=== PATIENT | male | born 1995 | race Caucasian/White ===

== ENCOUNTER 2017-05-19 12:43 | Day surgery (SDC) | payer OTHER ==
[2017-05-19 13:36] VITALS: BP 130/79; PULSE 97; RESP 18; TEMP 98.7; O2SAT 97
[2017-05-19] MEDS ORDERED: TRIAMCINOLONE ACETONIDE 40 MG/ML VIAL ONE (14:12)
--- NOTE | 2017-05-19 14:33 | PD.RAD ---
Post Procedure Progress Note Pre Procedure Diagnosis: (1) Lumbar radiculopathy Post Procedure Diagnosis: (1) Lumbar radiculopathy Procedure Date: May 19, 2017 Supervising Radiologist: Larry Carrero Proceduralist/Assist: Mario Alberto Gaytan RT(R), RT Corrine(R)() Anesthesia: Local Plan of Activity Patient to Unit: ROPU Patient Condition: Good See PACS Report for procedural detail/treatment Larry Carrero MD May 19, 2017 14:33
[2017-05-19 14:35] VITALS: BP 136/79; PULSE 77; RESP 20; TEMP 98.3; O2SAT 98
[2017-05-19] MEDS ORDERED: IOHEXOL 300 MG/ML 50 ML BTL (for RAD DIAG) IT ONE (14:54)
--- NOTE | 2017-05-19 15:10 | RADRPT ---
EXAM DATE/TIME: 05/19/2017 14:14 [facility] COMPARISON: No previous studies available for comparison. INDICATIONS : Patient presents with low back pain in need of epidural steroid injection for pain management. MEDICAL HISTORY : DDD Lumbar w/ sciatica SURGICAL HISTORY : N/A ENCOUNTER: Initial ACUITY: 3 months PAIN SCORE: 0/10 LOCATION: N/A FLUORO TIME: 0.6 minutes IMAGE SERIES: 0 CONTRAST: 2 cc Omnipaque (iohexol) 300 ACCESS LEVEL: MEDICATIONS: 1.) 80 mg triamcinolone (Kenalog) IA RESPONSE: Pre procedure pain level was 0/10. Post procedure pain level was 0/10. PROCEDURE : 1. Fluoroscopically guided epidural injection. The risks, benefits and alternatives to the procedure were explained and verbal and written consent w as obtained. The site was prepped in sterile fashion. Full sterile technique was used, including ca p, mask, sterile gloves and gown and a large sterile sheet. Hand hygiene and 2% chlorhexidine and/or betadine/alcohol prep was utilized per protocol for cutaneous antisepsis. The skin and subcutaneous tissues were infiltrated with local anesthetic solution. With fluoroscopic guidance the targeted epidural space was localized and positive contrast was inject ed to confirm epidural spread. Following this the prescribed medication was injected surrounding the space. The patient's preprocedure pain and post procedure pain levels were recorded. CONCLUSION: Uncomplicated fluoroscopically guided epidural injection as above. Larry Carrero MD on May 19, 2017 at 15:07 Board Certified Radiologist. This report was verified electronically.
== END 2017-05-19 15:07 | disposition home or self-care (01) ==
LOC: HROP 12:43 → HRIP 12:47 → HROP 15:07
PROVIDERS: ATTEND Family Medicine
DX: M54.16 Radiculopathy, lumbar region (principal)
CPT/HCPCS: 62323; J3301; Q9967